=== PATIENT | female | born 1940 | race Caucasian/White ===

== ENCOUNTER 2017-08-08 12:44 | Emergency (ER) | payer MEDICARE, BC ==
[~2017-08-08] VITALS: Ht 165.1 cm; Wt 61.2 kg
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
--- NOTE | 2017-08-08 12:50 | NUR ---
EMT AT BEDSIDE FOR EKG
--- NOTE | 2017-08-08 12:55 | NUR ---
NEW IV STARTED ON LFA, 20 G. BLOOD DRAWN AND SENT TO LAB.
[2017-08-08 13:11] LABS: BASOPHILS # (AUTO) 0.1 /CMM (0.0-0.2); EOSINOPHILS # (AUTO) 0.5 /CMM (0.0-0.7); EOSINOPHILS % (AUTO) 6.3 % (0.0-6.0); HEMATOCRIT 42 % (33-45); LYMPHOCYTES # (AUTO) 2.1 /CMM (0.8-4.8); LYMPHOCYTES % (AUTO) 26.6 % (20.0-44.0); MEAN CORPUSCULAR HEMOGLOBIN 29 PG (26.0-33.0); MEAN CORPUSCULAR HGB CONC 34 g/dl (31.0-36.0); MEAN CORPUSCULAR VOLUME 85 fL (82-100); MONOCYTES # (AUTO) 0.7 /CMM (0.1-1.30); MONOCYTES % (AUTO) 8.7 % (2.0-12.0); NEUTROPHILS # (AUTO) 4.3 /CMM (1.8-8.9); NEUTROPHILS % (AUTO) 57.4 % (43.0-81.0); PLATELET COUNT (AUTO) 177 /CMM (150-450); WHITE BLOOD COUNT (AUTO) 7.7 K/uL (4.3-11.0)
--- NOTE | 2017-08-08 13:14 | NUR ---
PATIENT TAKEN TO CT VIA STRETCHER.
[2017-08-08 13:22] LABS: CALCIUM, SERUM 9.3 mg/dL (8.5-10.1); CARBON DIOXIDE 32 mmol/L (21-32); GLUCOSE 122 mg/dL (74-106); UREA NITROGEN, BLOOD 13 mg/dL (7-18)
[2017-08-08 13:25] LABS: INR 1.02 (0.87-1.13); PROTHROMBIN TIME 10.6 SECS (9.5-12.7)
[2017-08-08 13:26] LABS: CHLORIDE 101 mmol/L (98-107); POTASSIUM 3.1 mmol/L (3.5-5.1); SODIUM SERUM 138 mmol/L (136-145)
[2017-08-08 13:31] LABS: TROPONIN I < 0.017 ng/mL (0.00-0.056)
--- NOTE | 2017-08-08 13:34 | NUR ---
PATIENT RETURNED FROM CT IN STABLE CONDITION.
--- NOTE | 2017-08-08 13:55 | NUR ---
PATIENT TAKEN TO CT.
--- NOTE | 2017-08-08 14:08 | NUR ---
PATIENT RETURNED BACK FROM CT VIA WHEELCHAIR IN STABLE CONDITION.
--- NOTE | 2017-08-08 16:00 | NUR ---
IV removed. Catheter intact and site benign. Pressure and 4x4 applied to site. No bleeding noted.
--- NOTE | 2017-08-08 16:05 | NUR ---
Patient discharged to home in stable condition. Written and verbal after care instructions given. Patient verbalizes understanding of instruction.
[2017-08-08 16:22] VITALS: BP 142/78
== END 2017-08-08 16:05 | disposition home or self-care (01) ==
LOC: EDBD 12:45 → ER 12:45
DX: S20.219A Contusion of unspecified front wall of thorax, initial encounter (principal); I10 Essential (primary) hypertension; V43.52XA Car driver injured in collision with other type car in traffic accident, initial encounter; Y93.89 Activity, other specified; Y92.488 Other paved roadways as the place of occurrence of the external cause; Y99.8 Other external cause status
CPT/HCPCS: 36415; 71010-TC; 71120-TC; 71260-TC; 80048-TC; 84484-TC; 85025-TC; 85730-TC; A4606; J2405; J7030; J7050; Q9967; Z7610